=== PATIENT | female | born 1985 | race Two or more races ===

== ENCOUNTER → 2017-01-16 | Outpatient (CLI) | payer OTHER ==
[~2017-01-16] MED LIST: AMOXIL (BID DO875 MG PO; ASPIRIN EC325 MG PO; BACTRIM DS1 TAB PO; COZAAR25 MG PO; ECOTRIN325 MG PO; GLUCOPHAGE1000 MG PO; GLYBURIDE5 MG PO; IRON 100 PLUS1 EACH PO; LEVAQUIN500 MG PO; LIPITOR80 MG PO; LOSARTAN POTASS25 MG PO; NEURONTIN100 MG PO; PERCOCET 5-3251 EACH; PERCOCET 5-3251 EACH PO; TOUJEO SOL300 UNIT/1 SUB-Q; TYLENOL325 MG PO; TYLENOL650 MG PO; ULTRAM50 MG PO; ZOCOR10 MG PO; ZOFRAN4 MG PO
== END | disposition disaster alternative care site (69) ==
LOC: GRAD 14:00
DX: S92.25 Fracture of navicular [scaphoid] of foot (principal); M85.672 Other cyst of bone, left ankle and foot; M85.872 Other specified disorders of bone density and structure, left ankle and foot; M21.962 Unspecified acquired deformity of left lower leg; Z98.890 Other specified postprocedural states; X58.XXXD Exposure to other specified factors, subsequent encounter

== ENCOUNTER 2017-01-30 05:56 | Day surgery (SDC) | payer OTHER ==
[~2017-01-30] VITALS: Ht 162.6 cm; Wt 66.8 kg
--- NOTE | ~2017-01-30 | OR ---
PATIENT'S NAME: JUAN HUSSEIN [facility] AGE: 31 Y [address] ROOM: [address] [address] LOCATION: [facility] ADMIT DATE: 01/30/2017 OR/Procedure Report DISCHARGE DATE: 01/30/2017 FAMILY PHYSICIAN: Idalia Lott MD ATTENDING PHYSICIAN: BENI SCHILLING SURGEON: Beni Schilling MD DRUM BUILDER: Carlos Olivera PA-C. 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 PROCEDURE PERFORMED: 1. Left lnba-wbgpndwje-nmqdjaozp midfoot fusion. 2. Placement of spanning external fixator, left foot. 3. Removal of pre-existing deep buried hardware from the left foot. 4. Use of intraoperative fluoroscopy, less than 1 hour. ANESTHESIA: General endotracheal anesthesia, peripheral nerve block. FLUIDS: See anesthesia report. ESTIMATED BLOOD LOSS: Minimal. TOURNIQUET: Left proximal thigh, 250 mmHg. SPECIMEN: Removed hardware from left foot. COMPLICATIONS: None. DISPOSITION: Stable to PACU. IMPLANTS: Synthes mesh plate and screw construct. Compression and locking screws used. An INFUSE bone graft as well as crushed cancellous bone chips. COUNTS: All counts correct. INDICATIONS: Ms. Juan Hussein is a 31-year-old female, who underwent the noted procedures above. The risks, benefits, and alternatives to pursuing surgical intervention were discussed with the patient detail. The patient elected to proceed with surgery. Anesthesia was consulted for their perioperative evaluation of the patient. PATIENT'S NAME: JUAN HUSSEIN [facility] AGE: 31 Y [address] ROOM: [facility] [place], [place] [address] LOCATION: [facility] ADMIT DATE: 01/30/2017 OR/Procedure Report DISCHARGE DATE: 01/30/2017 FAMILY PHYSICIAN: Idalia Lott MD ATTENDING PHYSICIAN: BENI SCHILLING I marked the patient's left lower extremity indicating correct surgical site. DESCRIPTION OF PROCEDURE: The patient was brought from the holding area to the operating room. Time-out was performed. General endotracheal anesthesia was administered. The patient was laid supine on the operating room table. The left lower extremity was then prepped and draped in a sterile fashion. I turned my attention to the left lower extremity. I turned my attention to the dorsum of the foot. An Esmarch was used to exsanguinate the limb and the tourniquet was inflated to 250 mmHg. Using previous surgical incision over the dorsum of the foot, I extended the incision proximally and distally. I dissected through skin, subcutaneous tissue, down to bone. I identified the previous plate and screws. I subsequently removed it. I performed a takedown nonunion of the navicular bone that went on to nonunion. The navicular bone appeared not salvageable, therefore I prepared the bony surfaces at the talar head and at the talonavicular joint and navicular cuneiform articulations. I removed all the excess cartilage. Unfortunately, there was significant bone loss at the navicular bone and very poor structural characteristics. The wound was then copiously irrigated with a normal sterile saline solution. I used a 0.062 K-wire to drill holes through the bone in order to allow for bony bleeding. I packed the navicular bone with bone graft for structural support. I placed INFUSE as well to assist with the healing. Using a mesh plate that I cut and matched to the size of the fusion site. I then placed the mesh metal plate dorsally for fixation. I provisionally pinned it in place. I then placed one pin into the neck of the talus and into the medial and intermediate cuneiforms. I placed the external fixator to first use it as a distraction device when I was preparing the bony surfaces for fusion, and then secondarily as a compression device to assist with the second plane in the sagittal plane for the purposes of achieving compression. The plate dorsally then was adjusted and fixed. I used two compression screws both proximally and distally to achieve compression to bone. I then drilled 4, measured, and placed locking screws. 3 proximally in the neck of the talus and 3 distally at the level of the cuneiforms. I introduced intraoperative fluoroscopy and noted that I had a successful removal of hardware, followed by successful placement of a spanning external fixator, working in compression as well as placement of the mesh plate using PATIENT'S NAME: BRIDGETTE BUTCHER [facility] AGE: 31 Y [address] ROOM: [facility] [place], [place] [address] LOCATION: [facility] ADMIT DATE: 01/30/2017 OR/Procedure Report DISCHARGE DATE: 01/30/2017 FAMILY PHYSICIAN: Idalia Lott MD ATTENDING PHYSICIAN: BENI SCHILLING it as a bridge plate construct for dorsal fixation. I noted a satisfactory reduction and position for fusion of the mid foot. The wound was then closed in layers beginning with 2-0 Vicryl, followed by 3-0 Vicryl suture, and 2-0 nylon suture to approximate the skin in an interrupted horizontal mattress fashion. The tourniquet was then let down. Sterile dressing was placed in form of Xeroform, followed by 4x4, and Webril. The patient was then placed into a well-padded short-leg splint with the ankle in neutral dorsiflexion. The patient was then transferred from the operating room table on to the stretcher and extubated. She was brought to the recovery room in stable condition. There were no intraoperative complications noted. Of note, my PA, Carlos Olivera PA-C, played an integral role in the intraoperative care of this patient. This included preoperative positioning, intraoperative expert retraction, and closing and splinting functions. IMPRESSION: The patient is status post the noted procedure above. PLAN: The patient will be nonweightbearing on the left lower extremity. She will be encouraged to rest, ice, and elevate the extremity going forward. Postoperative pain control in the form of Percocet and IV morphine as needed for pain. She will be admitted to the hospital. The hospitalist's were consulted for management of concomitant medical comorbidities. Physical Therapy and Occupational Therapy will consult for early ambulation and prevention of deconditioning. Postoperative antibiotics will be per routine. I will continue to monitor the patient closely in the postoperative period. MD KEELY BHANDARI/modl /[id number] d: 01/30/17 1730 t: 01/31/17 0846, OPERATIVE SUMMARY
[~2017-01-30 05:56] MED LIST changes: -AMOXIL (BID DO875 MG PO; -ASPIRIN EC325 MG PO; -BACTRIM DS1 TAB PO; -LEVAQUIN500 MG PO; -LIPITOR80 MG PO; -PERCOCET 5-3251 EACH PO; -TOUJEO SOL300 UNIT/1 SUB-Q; -ZOFRAN4 MG PO
[2017-01-30] MEDS ORDERED: ASPIRIN EC325 MG PO (12:22)
[2017-01-30] MEDS ORDERED: PERCOCET 5-3251 EACH PO (12:22)
== END 2017-01-30 13:35 | disposition disaster alternative care site (69) ==
LOC: G3N 05:56 → GSDC 05:56
PROC: [UNRECOGNIZED PROCEDURE] (principal; 2017-01-30)
PROC: 0SPJ04Z Removal of Internal Fixation Device from Left Tarsal Joint, Open Approach (ICD-10-PCS; 2017-01-30)
DX: S92.252A Displaced fracture of navicular [scaphoid] of left foot, initial encounter for closed fracture (principal); E11.9 Type 2 diabetes mellitus without complications; I10 Essential (primary) hypertension; E78.5 Hyperlipidemia, unspecified; Z98.51 Tubal ligation status; Z79.899 Other long term (current) drug therapy; Z79.891 Long term (current) use of opiate analgesic
CPT/HCPCS: C1713; J0690; J2001; J2250; J2405; J7030

== ENCOUNTER 2017-02-02 21:26 | Inpatient (IN) | payer SELFPAY ==
[~2017-02-02] VITALS: Ht 160 cm; Wt 64.7 kg
--- NOTE | ~2017-02-02 | ER ---
PATIENT'S NAME: BRIDGETTE BUTCHER [facility] AGE: 31 Y [address] ROOM: [place] [address] LOCATION: [facility] ADMIT DATE: 02/02/2017 ER/Outpatient Report DISCHARGE DATE: FAMILY PHYSICIAN: PHYSICIAN, NO ATTENDING PHYSICIAN: Naveed Perez HISTORY OF PRESENT ILLNESS: The patient is a 31-year-old female, who has had nausea and vomiting for 2 days. On the of this month, she had ankle surgery. Surgery went well, however, over the last two days, she has had persistent nausea and vomiting. Brought to the emergency room for evaluation tonight. The patient saw Doreen Joy. See Doreen's dictation in regard to the chief complaint, history of present illness, past medical history, physical exam, and laboratory study results. Doreen transferred the patient's care over to me at shift change and asked me to follow up the patient's CT scan of the chest with PE protocol, results, final diagnosis, and treatment plan. The patient's CT scan of the chest with PE protocol showed no evidence of pulmonary emboli. She did have some left upper lobe micro nodules and a 5-mm nodule in the left upper lobe. Otherwise, the CT scan was negative. The patient did have a low sodium of 121, low potassium of 3.2, low chloride of 86. The patient is a non-insulin- dependent diabetic. Her blood sugar was 136. Her serum ketones were negative. Her venous pH was 7.49. She has no evidence of ketoacidosis. Amylase and lipase were normal. Liver enzymes were normal. Her kidney function was normal. Her infection count was slightly elevated at 14,300 with a normal differential. The patient is not . Her lactate and procalcitonin were normal. IMPRESSION: 1. Persistent nausea and vomiting with hyponatremia, hypokalemia. 2. Hal-kiyfnpf-csfohcyfb diabetes mellitus. No evidence of diabetic ketoacidosis. 3. Hypertension. 4. Pulmonary nodules. PLAN: I did discuss this patient with Dr. Ferrer' hospitalist. My feelings are that with her low sodium and low potassium, she needs to be in the hospital to correct these. She is also a qzv-xhiqinp-neheryffp diabetic and will need to control her diet for nausea and vomiting, so she does not have any problems with her diabetes and getting into diabetic ketoacidosis. The patient has received a liter of normal saline. We will get a urine from her and evaluate her urine osmolality and urine sodium levels. I did discuss the patient with Dr. eFrrer' hospitalist. Dr. Ferrer is coming to the emergency room to evaluate the patient and admit the patient to the hospital for further evaluation and treatment. I did discuss my findings and plan with the patient PATIENT'S NAME: BRIDGETTE BUTCHER [facility] AGE: 31 Y [address] ROOM: [place] [address] LOCATION: [facility] ADMIT DATE: 02/02/2017 ER/Outpatient Report DISCHARGE DATE: FAMILY PHYSICIAN: PHYSICIAN, KORY ATTENDING PHYSICIAN: Naveed Perez through an erp consultant. She appears to understand. MD SENG MINOR/modl /[id number] d: 02/03/17 0158 t: 02/08/17 1809, OUTPATIENT REPORT
--- NOTE | ~2017-02-02 | CON ---
PATIENT'S NAME: BRIDGETTE BUTCHER [facility] AGE: 31 Y [address] ROOM: [id number] [place], [place] [address] LOCATION: [facility] ADMIT DATE: 02/03/2017 Consultation DISCHARGE DATE: FAMILY PHYSICIAN: PHYSICIAN, NO ATTENDING PHYSICIAN: LORIE JOAQUIN V REFERRING PHYSICIAN: LEIGHA MILLER REASON FOR CONSULTATION: Severe hyponatremia. HISTORY OF PRESENT ILLNESS: A 31-year-old female with past medical history of ihv-hhbshay-nnaosmory diabetes, hypertension, hypercholesterolemia, status post recent left ankle surgery, admitted with nausea, vomiting, and poor oral intake and developed hyponatremia over the course of time. Today, sodium levels dropped to 118. Nephrology consultation has been called for the above-mentioned reason. During my evaluation, the patient does appear to be euvolemic. Her serum osmolality is appropriately low, but her urine osmolality was also 273. The patient did mention about very poor oral intake over the last 7 days after ankle surgery due to pain and nausea and vomiting. She also claimed that she has significant pain in the left ankle 6 to 8/10 in intensity. Review of the chart also suggest she has taken about 3 L of free water orally in the last 24 hours. Her serum sodium on admission was 121. She received IV fluid for hydration. The serum sodium improved to 127 on the next day. However, on continued IV hydration, serum sodium started to drop slowly with 124, 120, 119, and then 118 this morning. Afterwards, she has been placed on 1 L of fluid restriction. She is also noted to have hypokalemia. During my evaluation, the patient appears to be alert, oriented, and conversant. Denied any mental confusion. Her is present at the bedside, who denied any kind of seizure activity or any abnormal mentation during this period. REVIEW OF SYSTEMS: GENERAL: No fever. No chills or rigor. HEENT: No sore throat. No sinus congestion. CVS: No chest pain. No exertional shortness of breath. No leg swelling. RESPIRATORY: No shortness of breath. No cough. No wheezing. GENITOURINARY: No pain with urination. No increased frequency. No nocturia. GASTROINTESTINAL: No abdominal pain. No abdominal distention. No nausea or vomiting. NEUROLOGIC: No weakness. No seizures. SKIN: No rash. No itching. ALLERGIES: No seasonal allergy. No hayfever. ENDOCRINE: No heat intolerance. No cold intolerance. PSYCHIATRIC: No sadness. No crying spells. No history of panic attack. PAST MEDICAL HISTORY: 1. Hypertension. 2. Lky-ubtdndn-egnhefjdc diabetes for 10 years. 3. Hypercholesterolemia. 4. Ankle surgery, recent. CURRENT MEDICATIONS: As per the chart. SOCIAL HISTORY: Denied any smoking, alcohol, or IV drug use.PATIENT'S NAME: BRIDGETTE BUTCHER [facility] AGE: 31 Y [address] ROOM: [id number] [place], [place] [address] LOCATION: [facility] ADMIT DATE: 02/03/2017 Consultation DISCHARGE DATE: FAMILY PHYSICIAN: PHYSICIAN, KORY ATTENDING PHYSICIAN: LORIE JOAQUIN V FAMILY HISTORY: Noncontributory for kidney disease, on dialysis. However, the patient's mother had hypertension and father had diabetes. PAST SURGICAL HISTORY: Two ankle surgeries, one of them is most recent. PHYSICAL EXAMINATION: VITAL SIGNS: Blood pressure 154/85, pulse 78, respiratory rate 18, temperature 98.4, afebrile, saturating 96-98% on room air. GENERAL: Not in apparent distress. HEAD: Moist mucous membranes. Bilateral PERRLA, EOMI. NECK: No JVD, thyromegaly or lymphadenopathy. CVS: S1 and S2 normal, regular rate and rhythm. No murmur, rub, gallop. CHEST: Bilateral air entry equal. No wheeze or rales. ABDOMEN: Soft, nontender, nondistended. Bowel sounds present. EXTREMITIES: No cyanosis, clubbing, jaundice. No dependent edema. MUSCULOSKELETAL: No limitation of range of motion. SKIN: No pallor, cyanosis, icterus. 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 No gross findings. LABORATORY DATA: CBC last done on 02/02; WBC of 14.3, hemoglobin 11.4, platelet 286. Chemistry panel done today morning; serum sodium 118, potassium 2.9, chloride 84, bicarbonate 22, BUN 6, creatinine 0.7, glucose 205, calcium 8.5, albumin 3.4, phosphorus 2. INR 0.94 done on 02/02. UA done on 02/03; specific gravity 1.010, pH 8, trace protein, trace glucose, and trace blood. Otherwise, negative. Urine sodium done yesterday was 51, urine sodium today is 61, serum osmolality is 253. Urine osmolality is 271. Cortisol 17.4. TSH 1.020. Amylase 18, lipase 66. Procalcitonin less than 0.05. ASSESSMENT AND PLAN: 1. Euvolemic hyponatremia, hypotonic, possible etiology is multifactorial with inappropriate ADH secretion in response to pain and poor osmole intake during free water excretion. Urine osmolality, although inappropriately high in comparison to serum osmolality, but not high enough to explain of serum sodium of 118. Moreover, she is taking almost 3 L of free water orally every day, which is also contributing to the hyponatremia. The patient's mental status is intact without any significant neurological symptoms/seizure. We do not see any indication for 3% sodium chloride or any hypertonic saline thereafter. We will restrict the fluid intake to 800 mL per day and we will encourage the patient to increase the protein intake. The patient in case may take outside food in order to achieve that. If just by increasing the protein and salt intake in the food we could not increase the urine osmolality further, we may need to use salt tablet; however, that would be a chronic and the patient has to take it chronically. We will defer for now, and we will try to manage with dietary modifications. We will check serum sodium and serum osmolality q.4 hourly and keep a close eye on it. Regarding urine studies, we will repeat urine study every day to look for the change of urine osmolality and urine sodium. PATIENT'S NAME: BRIDGETTE BUTCHER [facility] AGE: 31 Y [address] ROOM: [place] [address] LOCATION: [facility] ADMIT DATE: 02/03/2017 Consultation DISCHARGE DATE: FAMILY PHYSICIAN: PHYSICIAN, NO ATTENDING PHYSICIAN: LORIE JOAQUIN V 2. Hypokalemia. The patient has a hard stick and having trouble getting an IV access. We will encourage the primary team to confer that supplementation to p.o. We will give 40 mEq p.o. now and we will repeat 40 mEq after 4 hours. We can monitor the potassium tomorrow. 3. Nausea, vomiting, and constipation have improved significantly, possibly secondary to opioid use. We will encourage the patient to increase p.o. intake. 4. Noninsulin diabetes. Metformin is on hold, but glyburide has been discontinued, is also on sliding scale. Defer further management as per the primary team. 5. Essential hypertension. Blood pressure is well controlled and in acceptable range. Continue current antibiotic regimen. Thank you for allowing me to participate in this patient's care. We will closely monitor the patient's progress along with you. MIRELLAEKH ERNIE MILLER MD /david /[id number] d: 02/05/17 0058 t: 02/14/17 1610, CONSULTATION REPORT
--- NOTE | ~2017-02-02 | DS ---
PATIENT'S NAME: BRIDGETTE BUTCHER [facility] AGE: 31 Y [address] ROOM: [facility] [place], [place] [address] LOCATION: [facility] ADMIT DATE: 02/03/2017 Discharge Summary DISCHARGE DATE: 02/06/2017 FAMILY PHYSICIAN: PHYSICIAN, NO ATTENDING PHYSICIAN: Fred Ferrer V ADDENDUM: Culture data from urine specimen on 02/06/2017 after the patient's discharge returned positive for Klebsiella pneumoniae, greater than 100,000 count that was ESBL positive. I found this resolved on the afternoon of February 13, 2017. The patient was scheduled to have a followup with her public works manager today. I called him, and the patient had rescheduled for tomorrow. A followup urinalysis with culture will be obtained at that followup visit. I faxed the urine culture findings from her hospitalization to Dr. Sanders as well as to her primary, Dr. Carvajal. STEF DONAHUE APRN, APRN FOR MD SARAH BOO/david /[id number] d: 02/14/17 0345 t: 02/18/17 1510, DISCHARGE SUMMARY
--- NOTE | ~2017-02-02 | DS ---
PATIENT'S NAME: BRIDGETTE BUTCHER [facility] AGE: 31 Y [address] ROOM: [id number] [place], [place] [address] LOCATION: [facility] ADMIT DATE: 02/03/2017 Discharge Summary DISCHARGE DATE: 02/06/2017 FAMILY PHYSICIAN: PHYSICIAN, NO ATTENDING PHYSICIAN: Fred Ferrer V CORRECTED CC PER DICTATION 02/08/2017 AO PRINCIPAL DIAGNOSES: 1. Hyponatremia. 2. Nausea with vomiting. 3. Diabetes mellitus type 2. 4. Hyperlipidemia. 5. Essential hypertension. 6. Recent left foot surgery with hardware removal. HOSPITAL COURSE: Please reference any admitting data to the history and physical as dictated by Dr. Ferrer. Briefly, a 31-year-old female, who had undergone a left foot and ankle procedure and hardware removal with Dr. Rodriguez on 01/30/2017, presented to the emergency room with nausea, vomiting, constipation, and pains. The patient had been taking Percocet. Admits the workup, she was found to have a sodium level of 121 and potassium of 3.2. She was admitted for further evaluation and management. It had initially appeared as though it was secondary to volume loss, so she was given IV normal saline and oral potassium replacement and observed. She was given also an aggressive bowel regimen which relieved her constipation. Repeat lab values, however, showed an initial increase to 127 before falling to 124 and 120 respectively. She was then changed to 1.5% saline and the rate was increased and upon the next serial checks, she had actually fallen to 118 and 119 respectively. We then did a free water restriction and obtained consultation with Nephrology. Urine studies showed an osmolality inappropriate and high in comparison to the serum osmolality but not high enough to explain her low sodium content. She had been consuming approximately 3 L of free water by documentation. It was felt multifactorial with possible concern of inappropriate ADH secretion in response to her pain and poor osmolar intake during free water excretion. Thankfully, she did not have any neurologic symptoms. So dietary modifications were made to include an aggressive free water restriction of 800 mL in 24 hours as well as increased protein diet. Her IV fluids were then stopped and she was serially monitored. Her osmolality remained relatively unchanged. The urine osmolality did improve. Her serum sodium levels also increased steadily from 118 to 121 to 125, 126, and 129 respectively. Her fluid restriction was recommended to be relaxed to 1 L a day and would expect continued improvement. She was felt stable enough to discharge with close observation in the Renal PATIENT'S NAME: BRIDGETTE BUTCHER [facility] AGE: 31 Y [address] ROOM: [id number] [place], [place] [address] LOCATION: [facility] ADMIT DATE: 02/03/2017 Discharge Summary DISCHARGE DATE: 02/06/2017 FAMILY PHYSICIAN: PHYSICIAN, NO ATTENDING PHYSICIAN: Fred Ferrer. Remaining of her chronic conditions were maintained on home medications other than her diabetes, which was observed with Accu-Cheks before meals and at bedtime, corrected with sliding scale insulin in addition to her home glyburide. She was also maintained on DVT prophylactic aspirin twice daily as recommended by the orthopedic group without any complications. She was mobilizing safely and pain control of her most recent surgery was adequately controlled on Percocet. Nausea and vomiting had resolved, constipation had resolved. LABORATORY FINDINGS: Pertinent laboratory findings as detailed above. Most recent chemistry panel showed a glucose 137, BUN of 11, a creatinine of 0.6; sodium 129, that is up from a low of 118; a potassium of 4.1, that is up from a corrected 2.9; a chloride of 97, a CO2 of 24, a calcium of 8.5, albumin of 3.1, phosphorus 3.1, anion gap of 12.1, and GFR of greater than 60. Her lipid panel was taken and showed a total cholesterol was 77, triglyceride at 94, HDL of 35, and LDL of 24. Urinalysis did not show any leukocytes or nitrites, had some mild protein and mild blood, no bacteria noted. Her urine studies revealed a urine sodium of 51 and 61 respectively with urine osmolality initially 215 to 495, which in comparison to serum osmolality was almost 200 points greater. Urine potassium level was normal. Urine sodium random was normal. Amylase and lipase were negative. Procalcitonin level was negative. CONSULTING PROVIDERS: Nephrology, Dr. Sanders. DISCHARGE MEDICATIONS: 1. Aspirin changed to 81 mg p.o. daily. 2. Atorvastatin 80 mg p.o. every day. 3. Glyburide 5 mg p.o. every day. 4. Toujeo SoloStar pen 20 units subcutaneous every day. 5. Losartan 25 mg p.o. every day. 6. Glucophage 1000 mg p.o. twice daily with meals. 7. Percocet 5/325 mg 1-2 tablets every 4 hours as needed. 8. Zofran 4 mg p.o. every 6 hours as needed. DISCHARGE INSTRUCTIONS: The patient will be discharged to home with strict dietary modifications to include a high-protein diet and less than 1 L of free water intake every day. She will require a followup with Dr. Sanders of the nephrology group on February 14 at 12:30. She should obtain a renal panel at this visit as well as urinalysis and urine osmolality. She should also continue with orthopedic recommendations for her recent left PATIENT'S NAME: KOSTAS HAYNES [facility] AGE: 31 Y [address] ROOM: [address] [address] LOCATION: [facility] ADMIT DATE: 02/03/2017 Discharge Summary DISCHARGE DATE: 02/06/2017 FAMILY PHYSICIAN: PHYSICIAN, NO ATTENDING PHYSICIAN: Fred Ferrer V ankle surgery, per Dr. Rodriguez and follow up accordingly with him. She was given adequate analgesia with continued Percocet. She was mobilizing safely and aspirin was reduced to once daily per Dr. Noonan. The above line of management was discussed with the patient via [place] interpretation, who stated complete agreement and understanding of the plan. All questions were answered with statements of satisfaction. She was educated that if she were to have a worsening condition to present sooner to her primary care doctor, Dr. Rowe or to the emergency room. Total time arranging discharge was less than 30 minutes. Thank you for allowing us to participate in the care of this patient while at [facility]. STEF DONAHUE APRN, APRN FOR MD SARAH BOO/david /[id number] CC: MD Andrés Funglabette healthkaren Sanders MD CORRECTED CC PER DICTATION 02/08/2017 AO d: t: 02/08/17 1207, DISCHARGE SUMMARY
--- NOTE | ~2017-02-02 | ER ---
PATIENT'S NAME: KOSTAS HAYNES [facility] AGE: 31 Y [address] ROOM: [place] [address] LOCATION: [facility] ADMIT DATE: 02/02/2017 ER/Outpatient Report DISCHARGE DATE: FAMILY PHYSICIAN: PHYSICIAN, NO ATTENDING PHYSICIAN: Naveed Perez TIME OF ARRIVAL: 2137 hours. TIME OF EXAM: 2140 hours. CHIEF COMPLAINT: Abdominal pain. HISTORY OF PRESENT ILLNESS: The patient speaks Armenian. The MARTTI was used to communicate with the patient. She had surgery on her left ankle on Saturday01/30/2017. For the past 2 days, she has been nauseated, vomiting, having sharp pain in the left upper quadrant area, has made her feel short of breath. She denies any urinary frequency, has not had a bowel movement since the surgery, and has not felt febrile. ALLERGIES: SHE HAS NO KNOWN ALLERGIES. CURRENT MEDICATIONS: Current medications are on the chart and reviewed by me. PAST MEDICAL HISTORY: Fjj-faripbh-kviottkzd diabetes, hypertension. She is currently on amoxicillin and Levaquin. PAST SURGERIES: Left ankle surgery. SOCIAL HISTORY: She presents to the ER accompanied by her friend. She denies use of tobacco, drugs, or alcohol. REVIEW OF SYSTEMS: Negative other than those mentioned in the HPI. PHYSICAL EXAMINATION: VITAL SIGNS: Blood pressure was 161/80, pulse of 87, respirations 20, temp of PATIENT'S NAME: KOSTAS HAYNES [facility] AGE: 31 Y [address] ROOM: [place] [address] LOCATION: [facility] ADMIT DATE: 02/02/2017 ER/Outpatient Report DISCHARGE DATE: FAMILY PHYSICIAN: PHYSICIAN, NO ATTENDING PHYSICIAN: Naveed Perez 99.1, and O2 sat of 97% on room air. GENERAL: She is awake, alert, and oriented x4. SKIN: [place], warm, and dry. RESPIRATIONS: Even and nonlabored. LUNGS: Lung sounds are clear throughout. HEART: Regular rate and rhythm. ABDOMEN: Soft with hyperactive bowel sounds. She is very tender in the left upper quadrant area. No other pain. EXTREMITIES: She does have a splint on the left lower leg. Nail beds are pink with less than 3-second jared. EMERGENCY DEPARTMENT COURSE: Saline lock was initiated. Fluids of normal saline were started at a wide- open rate. She was given Compazine 10 mg IV. LABS AND X-RAYS: Lab work was drawn. CBC shows a white count of 14.3, hemoglobin is 11.4 with hematocrit of 32.3. Her sodium is 121, potassium of 3.2, chloride of 86, glucose is 136, and amylase is 18 with a lipase of 66. Her venous gases showed pH of 7.49, pCO2 is 40 with a HC03 of 30.5. Lactate was 1.7. Procalcitonin was normal. D-dimer is elevated at 1.08. Serum is negative. Acetone was negative. PLAN: With the Compazine, the patient's nausea did calm down. Did do CT of her chest waiting the results. Report given to Dr. Perez at the change of shift as we await the CT results and for plan of care. LEANNE VASQUEZ APRN FOR MD ALIZE MINOR/david /[id number] d: 02/03/17 0036 t: 02/07/17 1811, OUTPATIENT REPORT
--- NOTE | ~2017-02-02 | HP ---
PATIENT'S NAME: KOSTAS HAYNES [facility] AGE: 31 Y [address] ROOM: [place] [address] LOCATION: [facility] ADMIT DATE: 02/03/2017 History & Physical DISCHARGE DATE: FAMILY PHYSICIAN: PHYSICIAN, NO ATTENDING PHYSICIAN: LORIE JOAQUIN V DATE OF SERVICE: CHIEF COMPLAINT: Nausea, vomiting and constipation. HISTORY OF PRESENT ILLNESS: The patient is a 31-year-old female with a past medical history of non-insulin- dependent diabetes, hypertension, hypercholesterolemia, status post a very recent left ankle surgery with Dr. Rodriguez. The patient has been home for 3 days during which she experienced worsening abdominal pain, constipation, nausea and vomiting. The patient has taken her prescribed Percocet (5/325, one to two tablets every 6 hours for pain). She finally did have a bowel movement earlier last night, but when she showed up to the ER with the above symptoms, she was found to have a sodium of 121. She denies any fevers or chills, chest pain or palpitations. A CAT scan of her chest with contrast to rule out PE was negative aside from some pulmonary nodules. REVIEW OF SYSTEMS: All systems have been reviewed and are negative aside from pertinent positives as mentioned above. PAST MEDICAL HISTORY: 1. Ctj-mtcovmz-bqhdgojbb diabetes for 10 years. 2. Hypertension. 3. Hypercholesterolemia. 4. Two complex ankle surgeries, one most recently. CURRENT MEDICATIONS: 1. Percocet as described above. 2. Losartan. 3. Atorvastatin. 4. Zofran. 5. Amoxicillin. 6. Levofloxacin. 7. Aspirin. 8. Simvastatin. PATIENT'S NAME: KOSTAS HAYNES [facility] AGE: 31 Y [address] ROOM: [place] [address] LOCATION: [facility] ADMIT DATE: 02/03/2017 History & Physical DISCHARGE DATE: FAMILY PHYSICIAN: PHYSICIAN, NO ATTENDING PHYSICIAN: LORIE JOAUQIN V 9. Metformin. 10. Glyburide. SOCIAL HISTORY: Negative for toxic habits. FAMILY HISTORY: Reviewed and noncontributory due to known underlying etiology for the patient's presentation. PHYSICAL EXAMINATION: VITAL SIGNS: Blood pressure 161/80, pulse is 81, respirations are 20, temperature 99, and saturating 97% on room air. GENERAL: Appears obese, middle-aged female of considerably older age than stated, in no acute distress. NEUROLOGIC: Nonfocal. EYES: Shows pupils are equal and reactive to light. LYMPHATICS: Shows no cervical lymphadenopathy. ENDOCRINE: Shows no thyromegaly. LUNGS: Clear to auscultation. HEART: Rate is regular with no appreciable murmurs, gallops, or rubs. ABDOMEN: Soft, nontender. Slightly hypertympanic with diminished bowel sounds, but no guarding or rebound. VASCULAR: 2+ pedal pulses on the right. MUSCULOSKELETAL: Deferred. PSYCHIATRIC: Appropriate mood, cognition, and affect. SKIN: Warm and dry. DIAGNOSTIC DATA: Studies performed in the ER is a CAT scan as described above. Lab results significant for pH 7.49, pCO2 of 40, bicarb of 30.5, saturations 77%. Sodium 121, potassium 3.2, chloride is 86, glucose is 136, white count is 14.3, hemoglobin 11.4, platelets 286. Procalcitonin is negative. Urinalysis is still pending. ASSESSMENT AND PLAN: This is a 31-year-old female who was admitted with: 1. Constipation, nausea, vomiting, most likely induced by unopposed use of Percocet. At this point, we will put the patient on a steady bowel regimen. We will try to minimize the amount of opioids that she is taking. We will provide her symptomatic support for her nausea. 2. Hyponatremia. The patient does appear to be in some contraction alkalosis and her hyponatremia while profound is likely acute. She was started on PATIENT'S NAME: KOSTAS IZQUIERDOBRIDGETTE MONTERO [facility] AGE: 31 Y [address] ROOM: [address] [address] LOCATION: [facility] ADMIT DATE: 02/03/2017 History & Physical DISCHARGE DATE: FAMILY PHYSICIAN: PHYSICIAN, NO ATTENDING PHYSICIAN: LORIE JOAQUIN V IV fluids in the ER and I will slow down the rate and check her urine sodium. We will perform serial sodium checks and normalize her hyponatremia with normal saline. 3. Hypokalemia. We will provide her potassium supplementation. 4. Lwj-ywflfkl-rbcaebmzt diabetes. We will hold off on her metformin, as she has significant electrolyte abnormalities, but continue her glyburide. 5. Hypercholesterolemia. We will continue her on her current statin. 6. Essential hypertension. We will continue her on current antihypertensive. 7. Deep vein thrombosis prophylaxis will be instituted if the patient stays in the hospital for longer than 48 hours. 8. Additional management will depend on clinical course. Time dedicated to this patient's encounter is 35 minutes. MD CICI ALVAREZ/davdi /[id number] D: [id number] T: [id number] HISTORY & PHYSICAL
[~2017-02-02 21:26] MED LIST changes: +ASPIRIN EC325 MG PO; +PERCOCET 5-3251 EACH PO
[2017-02-02 23:04] LABS: BICARBONATE 30.5 mmol/L (18.0-23.0); LACTATE 1.7 mEq/L (0.50-1.60); PCO2 40 mmHg (35-45); PO2 38 mmHg (80-90)
[2017-02-02 23:05] LABS: BASOPHIL % 0.1 %; EOSINOPHIL % 0.1 %; HEMATOCRIT 32.3 % (33.0-46.0); HEMOGLOBIN 11.4 g/dL (11.0-15.0); IMMATURE GRANULOCYTE # 0.1 K/uL (0.0-0.3); IMMATURE GRANULOCYTE % 0.4 %; LYMPHOCYTE # 2.9 K/uL (0.8-4.0); LYMPHOCYTE % 20.1 %; MCH 27.3 pg (27.0-34.0); MCHC 35.3 gm/dL (32.0-36.5); MCV 77.5 fl (83.0-98.0); MONOCYTE # 0.9 K/uL (0.0-1.0); NEUTROPHIL # (ANC) 10.5 K/uL (1.8-7.8); NEUTROPHIL % 73.3 %; NRBC % 0 /100WBC (0-0.00); PLATELET COUNT 286 K/uL (150-450); RBC 4.17 M/uL (3.50-5.50); RDW-CV 12.3 % (11.9-14.6); WBC 14.3 K/uL (4.0-11.0)
[2017-02-02 23:15] LABS: INR - (THERAPEUTIC) 0.94 (0.92-1.07); PROTIME 9.9 SECONDS (9.8-11.4); PTT 28 SECONDS (25-32)
[2017-02-02 23:25] LABS: ALK PHOS 78 IU/L (33-138); ALT 17 IU/L (12-78); ANION GAP 12.2 (10.0-19.0); AST 15 IU/L (10-40); BLOOD UREA NITROGEN 8 mg/dL (6-24); CHLORIDE 86 mMol/L (96-110); CO2 26 mMol/L (22-32); CREATININE 0.5 mg/dL (0.5-1.1); ESTIMATED GFR (MDRD EQUATION) > 60; POTASSIUM 3.2 mMol/L (3.7-5.1); SODIUM 121 mMol/L (135-145); TOTAL BILIRUBIN 0.4 mg/dL (0.0-1.5); TOTAL PROTEIN 7.2 g/dL (6.0-8.4)
[2017-02-03 02:44] LABS: BILIRUBIN URINE NEGATIVE (NEGATIVE); BLOOD URINE 10 /UL (NEGATIVE); COLOR URINE COLORLESS (YELLOW); GLUCOSE URINE 50 mg/dL (NEGATIVE); KETONE URINE NEGATIVE (NEGATIVE); LEUKOCYTES URINE NEGATIVE /UL (NEGATIVE); NITRITE URINE NEGATIVE (NEGATIVE); PROTEIN URINE 30 mg/dL (NEGATIVE); TURBIDITY URINE CLEAR (CLEAR); UROBILINOGEN URINE NORMAL (NORMAL)
[2017-02-03 03:04] LABS: RBC URINE RARE #/HPF (NEGATIVE); WBC URINE NEGATIVE #/HPF (NEGATIVE)
[2017-02-03 03:05] LABS: BACTERIA URINE NEGATIVE (NEGATIVE)
[2017-02-03] MEDS ORDERED: COZAAR25 MG PO (03:41)
[2017-02-03] MEDS ORDERED: ZOFRAN4 MG PO (03:42)
[2017-02-03] MEDS ORDERED: LIPITOR80 MG PO (03:42)
[2017-02-03] MEDS ORDERED: AMOXIL (BID DO875 MG PO (03:43)
[2017-02-03] MEDS ORDERED: LEVAQUIN500 MG PO (03:44)
[2017-02-03] MEDS ORDERED: BACTRIM DS1 TAB PO (03:44)
[2017-02-03] MEDS ORDERED: TOUJEO SOL300 UNIT/1 SUB-Q (03:45)
[2017-02-03 04:13] LABS: ANION GAP 11.5 (10.0-19.0); BLOOD UREA NITROGEN 6 mg/dL (6-24); CALCIUM 7.9 mg/dL (8.5-10.5); CHLORIDE 94 mMol/L (96-110); CO2 25 mMol/L (22-32); CREATININE 0.4 mg/dL (0.5-1.1); ESTIMATED GFR (MDRD EQUATION) > 60; POTASSIUM 3.5 mMol/L (3.7-5.1); SODIUM 127 mMol/L (135-145)
[2017-02-03 09:43] LABS: ANION GAP 12.9 (10.0-19.0); BLOOD UREA NITROGEN 7 mg/dL (6-24); CALCIUM 7.7 mg/dL (8.5-10.5); CHLORIDE 93 mMol/L (96-110); CO2 22 mMol/L (22-32); CREATININE 0.5 mg/dL (0.5-1.1); ESTIMATED GFR (MDRD EQUATION) > 60; POTASSIUM 3.9 mMol/L (3.7-5.1); SODIUM 124 mMol/L (135-145)
[2017-02-03 18:25] LABS: ALBUMIN 2.9 gm/dL (3.5-5.0); BLOOD UREA NITROGEN 6 mg/dL (6-24); CALCIUM 7.6 mg/dL (8.5-10.5); CO2 23 mMol/L (22-32); CREATININE 0.5 mg/dL (0.5-1.1); ESTIMATED GFR (MDRD EQUATION) > 60; POTASSIUM 3.5 mMol/L (3.7-5.1)
[2017-02-03 18:26] LABS: ANION GAP 13.5 (10.0-19.0); CHLORIDE 87 mMol/L (96-110); PHOSPHORUS 1.6 mg/dL (2.5-4.9); SODIUM 120 mMol/L (135-145)
[2017-02-04 02:21] LABS: ALBUMIN 2.9 gm/dL (3.5-5.0); BLOOD UREA NITROGEN 5 mg/dL (6-24); CALCIUM 7.9 mg/dL (8.5-10.5); CO2 22 mMol/L (22-32); CREATININE 0.3 mg/dL (0.5-1.1); ESTIMATED GFR (MDRD EQUATION) > 60; POTASSIUM 3.3 mMol/L (3.7-5.1)
[2017-02-04 02:25] LABS: ANION GAP 13.3 (10.0-19.0); CHLORIDE 87 mMol/L (96-110); PHOSPHORUS 1.9 mg/dL (2.5-4.9); SODIUM 119 mMol/L (135-145)
[2017-02-04 06:54] LABS: BLOOD UREA NITROGEN 5 mg/dL (6-24); CALCIUM 7.9 mg/dL (8.5-10.5); CO2 23 mMol/L (22-32); CREATININE 0.4 mg/dL (0.5-1.1); ESTIMATED GFR (MDRD EQUATION) > 60; POTASSIUM 3.2 mMol/L (3.7-5.1)
[2017-02-04 06:56] LABS: ANION GAP 13.2 (10.0-19.0); CHLORIDE 86 mMol/L (96-110); SODIUM 119 mMol/L (135-145)
[2017-02-04 10:55] LABS: ALBUMIN 3.4 gm/dL (3.5-5.0); BLOOD UREA NITROGEN 6 mg/dL (6-24); CALCIUM 8.5 mg/dL (8.5-10.5); CO2 22 mMol/L (22-32)
[2017-02-04 10:56] LABS: ANION GAP 14.9 (10.0-19.0); CHLORIDE 84 mMol/L (96-110); CREATININE 0.7 mg/dL (0.5-1.1); ESTIMATED GFR (MDRD EQUATION) > 60; POTASSIUM 2.9 mMol/L (3.7-5.1); SODIUM 118 mMol/L (135-145)
[2017-02-04 13:16] LABS: POTASSIUM 3.3 mMol/L (3.7-5.1)
[2017-02-04 18:22] LABS: ALBUMIN 3.2 gm/dL (3.5-5.0); BLOOD UREA NITROGEN 7 mg/dL (6-24); CALCIUM 8.3 mg/dL (8.5-10.5); CHLORIDE 90 mMol/L (96-110); CO2 22 mMol/L (22-32); CREATININE 0.5 mg/dL (0.5-1.1); ESTIMATED GFR (MDRD EQUATION) > 60; POTASSIUM 4.2 mMol/L (3.7-5.1)
[2017-02-04 18:24] LABS: ANION GAP 13.2 (10.0-19.0); PHOSPHORUS 1.8 mg/dL (2.5-4.9); SODIUM 121 mMol/L (135-145)
[2017-02-05 01:10] LABS: SODIUM 125 mMol/L (135-145)
[2017-02-05 07:24] LABS: ALBUMIN 2.8 gm/dL (3.5-5.0); ANION GAP 13.4 (10.0-19.0); BLOOD UREA NITROGEN 6 mg/dL (6-24); CHLORIDE 96 mMol/L (96-110); CO2 20 mMol/L (22-32); CREATININE 0.4 mg/dL (0.5-1.1); ESTIMATED GFR (MDRD EQUATION) > 60; POTASSIUM 4.4 mMol/L (3.7-5.1); SODIUM 125 mMol/L (135-145)
[2017-02-05 07:30] LABS: PHOSPHORUS 1.9 mg/dL (2.5-4.9)
[2017-02-05 12:23] LABS: ALBUMIN 3.1 gm/dL (3.5-5.0); BLOOD UREA NITROGEN 8 mg/dL (6-24); CALCIUM 8.5 mg/dL (8.5-10.5); CHLORIDE 94 mMol/L (96-110); CO2 21 mMol/L (22-32); CREATININE 0.6 mg/dL (0.5-1.1); ESTIMATED GFR (MDRD EQUATION) > 60; POTASSIUM 4.4 mMol/L (3.7-5.1)
[2017-02-05 12:24] LABS: ANION GAP 13.4 (10.0-19.0); PHOSPHORUS 1.9 mg/dL (2.5-4.9); SODIUM 124 mMol/L (135-145)
[2017-02-05 21:40] LABS: ALBUMIN 3.1 gm/dL (3.5-5.0); ANION GAP 12.1 (10.0-19.0); BLOOD UREA NITROGEN 15 mg/dL (6-24); CALCIUM 8.7 mg/dL (8.5-10.5); CHLORIDE 94 mMol/L (96-110); CO2 24 mMol/L (22-32); CREATININE 0.7 mg/dL (0.5-1.1); ESTIMATED GFR (MDRD EQUATION) > 60; PHOSPHORUS 2.5 mg/dL (2.5-4.9); POTASSIUM 4.1 mMol/L (3.7-5.1); SODIUM 126 mMol/L (135-145)
[2017-02-06 06:26] LABS: ALBUMIN 3.1 gm/dL (3.5-5.0); ANION GAP 12.1 (10.0-19.0); BLOOD UREA NITROGEN 11 mg/dL (6-24); CALCIUM 8.5 mg/dL (8.5-10.5); CHLORIDE 97 mMol/L (96-110); CO2 24 mMol/L (22-32); CREATININE 0.6 mg/dL (0.5-1.1); ESTIMATED GFR (MDRD EQUATION) > 60; PHOSPHORUS 3.1 mg/dL (2.5-4.9); POTASSIUM 4.1 mMol/L (3.7-5.1); SODIUM 129 mMol/L (135-145)
[2017-02-06 11:01] LABS: BILIRUBIN URINE NEGATIVE (NEGATIVE); BLOOD URINE NEGATIVE /UL (NEGATIVE); COLOR URINE YELLOW (YELLOW); GLUCOSE URINE NEGATIVE (NEGATIVE); KETONE URINE NEGATIVE (NEGATIVE); LEUKOCYTES URINE NEGATIVE /UL (NEGATIVE); NITRITE URINE NEGATIVE (NEGATIVE); PROTEIN URINE 100 mg/dL (NEGATIVE); SPEC GRAVITY URINE 1.015 (1.003-1.035); TURBIDITY URINE 1+ (CLEAR); UROBILINOGEN URINE NORMAL (NORMAL)
[2017-02-06 11:08] LABS: RBC URINE NEGATIVE #/HPF (NEGATIVE); WBC URINE RARE #/HPF (NEGATIVE)
[2017-02-06 11:09] LABS: BACTERIA URINE NEGATIVE (NEGATIVE)
== END 2017-02-06 17:15 | disposition disaster alternative care site (69) | DRG 641 ==
LOC: GMED 21:26 → G3N 02-03 01:23 → GPCU 02-03 01:23 → G3N 02-03 16:31
PROVIDERS: Emergency Medicine; Internal Medicine; Internal Medicine Nephrology; Nurse Practitioner Family; ADMIT Internal Medicine
DX: E87.1 Hypo-osmolality and hyponatremia (principal); I10 Essential (primary) hypertension; R11.2 Nausea with vomiting, unspecified; R91.8 Other nonspecific abnormal finding of lung field; E11.9 Type 2 diabetes mellitus without complications; E78.00 Pure hypercholesterolemia, unspecified; E78.5 Hyperlipidemia, unspecified; E87.6 Hypokalemia; K59.00 Constipation, unspecified; Z79.82 Long term (current) use of aspirin
CPT/HCPCS: J0780; J2001; J3480; J7030; J7050

== ENCOUNTER → 2017-03-27 | Day surgery (SDC) | payer OTHER ==
[~2017-03-27] VITALS: Ht 157.5 cm
[~2017-03-27] MED LIST changes: +AMOXIL (BID DO875 MG PO; +BACTRIM DS1 TAB PO; +LEVAQUIN500 MG PO; +LIPITOR80 MG PO; +TOUJEO SOL300 UNIT/1 SUB-Q; +ZOFRAN4 MG PO
--- NOTE | ~2017-03-27 | OR ---
PATIENT'S NAME: BRIDGETTE BUTCHER [facility] AGE: 31 Y [address] ROOM: [place] [address] LOCATION: [facility] ADMIT DATE: 03/27/2017 OR/Procedure Report DISCHARGE DATE: FAMILY PHYSICIAN: Idalia Lott MD ATTENDING PHYSICIAN: BENI SCHILLING SURGEON: Beni Schilling MD MED SPECIALIST: Carlos Olivera PA-C. DATE OF PROCEDURE: 03/27/2017 POSTOPERATIVE DIAGNOSIS: Left navicular fracture-nonunion, with subsequent takedown of nonunion and revision of open reduction and internal fixation with bone graft and placement of spanning external fixator device. POSTOPERATIVE DIAGNOSIS: Left navicular fracture-nonunion, with subsequent takedown of nonunion and revision of open reduction and internal fixation with bone graft and placement of spanning external fixator device. PROCEDURE PERFORMED: 1. Removal of spanning external fixator from left foot. 2. Use of intraoperative fluoroscopy, less than 1 hour. ANESTHESIA: General endotracheal anesthesia and peripheral nerve blocks. FLUIDS: See anesthesia report. ESTIMATED BLOOD LOSS: Minimal. TOURNIQUET: Left proximal thigh 250 mmHg. SPECIMEN: None. COMPLICATIONS: None. DISPOSITION: Stable in PACU. COUNTS: All counts correct. INDICATIONS: Ms Juan Hussein is a 31-year-old female who underwent the noted procedures above. The risks, benefits, and alternatives pursuing surgical intervention were discussed the patient in detail. I marked the patient's left lower extremity indicating correct surgical site. Anesthesia was consulted for their perioperative evaluation of the patient. OPERATIVE REPORT IN DETAIL: The patient was brought from the holding area to the operating room. A time-out was performed. General endotracheal PATIENT'S NAME: BRIDGETTE BUTCHER [facility] AGE: 31 Y [address] ROOM: [place] [address] LOCATION: [facility] ADMIT DATE: 03/27/2017 OR/Procedure Report DISCHARGE DATE: FAMILY PHYSICIAN: Idalia Lott MD ATTENDING PHYSICIAN: BENI SCHILLING anesthesia was administered. Perioperative antibiotics were administered for prophylactic purposes. The left lower extremity then prepped and draped in a sterile fashion. I turned my attention the left foot. I introduced intraoperative fluoroscopy. I documented the midfoot. There was a stable mesh plate and screws in place and an external fixator. I then using my removal external fixator removal set removed the external fixator. The two pins were removed from the foot. The two pin sites were irrigated and curetted out. There was purulent fluid present. I then introduced intraoperative fluoroscopy again. I brought the foot through the ankle through range of motion. On live fluoroscopy, the fusion appeared stable. The internal hardware was intact. The alignment was unchanged. The patient was then placed into a well-padded short-leg splint with the ankle in neutral dorsiflexion. The patient was then transferred to operating table onto the stretcher and extubated. She was brought to recovery room in stable condition. There were no intraoperative complications noted. Of note, my PA, Carlos Olivera PA-C, played an integral role in the intraoperative care of this patient. This included preoperative positioning, intraoperative expert retraction, and closing and splinting functions. IMPRESSION: The patient is status post the noted procedure above. PLAN: The patient will be nonweightbearing on the left lower extremity. Postoperative nerve blocks placed by the Anesthesia team. We provisionally placed a splint today as opposed to a hard cast, so that we can check the pin site in 1 week. DVT prophylaxis will be provided. Postoperative pain medication will also be provided. She will follow up in the office in 1 week for first postoperative visit. BENI SCHILLING MD RCD/modl PATIENT'S NAME: BRIDGETTE BUTCHER [facility] AGE: 31 Y [address] ROOM: [place] [address] LOCATION: [facility] ADMIT DATE: 03/27/2017 OR/Procedure Report DISCHARGE DATE: FAMILY PHYSICIAN: Idalia Lott MD ATTENDING PHYSICIAN: BENI SCHILLING /[id number] d: 03/27/17 1159 t: 03/27/17 1331, OPERATIVE SUMMARY
[2017-03-27 08:57] LABS: BASOPHIL % 0.3 %; EOSINOPHIL # 0.1 K/uL (0.0-0.5); EOSINOPHIL % 0.8 %; HEMATOCRIT 31.4 % (33.0-46.0); HEMOGLOBIN 10.4 g/dL (11.0-15.0); IMMATURE GRANULOCYTE % 0.4 %; LYMPHOCYTE # 2.4 K/uL (0.8-4.0); LYMPHOCYTE % 21.9 %; MCH 27.4 pg (27.0-34.0); MCHC 33.1 gm/dL (32.0-36.5); MONOCYTE # 0.8 K/uL (0.0-1.0); MONOCYTE % 7.1 %; MPV 11.3 fl (9.4-12.4); NEUTROPHIL # (ANC) 7.6 K/uL (1.8-7.8); NEUTROPHIL % 69.5 %; NRBC % 0 /100WBC (0-0.00); PLATELET COUNT 334 K/uL (150-450); RDW-CV 13.8 % (11.9-14.6); WBC 10.9 K/uL (4.0-11.0)
[2017-03-27 08:59] LABS: MCV 82.6 fl (83.0-98.0)
[2017-03-27 09:06] LABS: BILIRUBIN URINE NEGATIVE (NEGATIVE); BLOOD URINE 250 /UL (NEGATIVE); COLOR URINE RED (YELLOW); GLUCOSE URINE NEGATIVE (NEGATIVE); KETONE URINE NEGATIVE (NEGATIVE); LEUKOCYTES URINE 500 /UL (NEGATIVE); NITRITE URINE NEGATIVE (NEGATIVE); PROTEIN URINE 100 mg/dL (NEGATIVE); TURBIDITY URINE 3+ (CLEAR); UROBILINOGEN URINE NORMAL (NORMAL)
[2017-03-27 09:21] LABS: BACTERIA URINE FEW (NEGATIVE); RBC URINE PACKED FIELD #/HPF (NEGATIVE)
== END | disposition disaster alternative care site (69) ==
LOC: GPOC 03-26 10:00 → GSDC 07:00
PROVIDERS: Orthopaedic Surgery Adult Reconstructive Orthopaedic Surgery
PROC: 0SPGX5Z Removal of External Fixation Device from Left Ankle Joint, External Approach (ICD-10-PCS; principal; 2017-03-27)
DX: S92.252K Displaced fracture of navicular [scaphoid] of left foot, subsequent encounter for fracture with nonunion (principal); E11.9 Type 2 diabetes mellitus without complications; I10 Essential (primary) hypertension; E78.5 Hyperlipidemia, unspecified; Z98.51 Tubal ligation status; Z98.890 Other specified postprocedural states; Z79.4 Long term (current) use of insulin; Z79.82 Long term (current) use of aspirin; Z79.899 Other long term (current) drug therapy
CPT/HCPCS: J0690; J2001; J7030